=== PATIENT | male | born 1975 | race Caucasian/White ===

== ENCOUNTER 2017-04-12 16:00 | Emergency (ER) | payer SELFPAY ==
[~2017-04-12] VITALS: Ht 180.3 cm; Wt 81.0 kg
[2017-04-12] MEDS ORDERED: SODIUM CHLORIDE 0.9% 1,000 ML IV ONE (16:23)
[2017-04-12 16:54] LABS: CHLORIDE 104 mEq/L (98-107)
[2017-04-12 16:57] LABS: CARBON DIOXIDE 26 mEq/L (21-32)
[2017-04-12 16:58] LABS: BASOPHILS % 0.3 % (0.0-2.0); EOSINOPHILS % 0.2 % (0.0-5.0); HEMATOCRIT. 42.9 % (42.0-52.0); HEMOGLOBIN. 15.2 g/dL (14.0-18.0); LYMPHOCYTES % 18.3 % (20.0-50.0); MEAN CORPUSCULAR VOLUME 87.7 fL (80.0-94.0); MEAN PLATELET VOLUME 9.9 fl (7.4-10.4); MONOCYTES % 6.4 % (2.0-8.0); NEUTROPHILS % 74.8 % (40.0-76.0); PLATELET 193 x1000/uL (130-400); RED CELL DISTRIBUTION WIDTH 12.9 % (11.6-14.6)
[2017-04-12 17:05] LABS: TROPONIN I < 0.02 ng/mL (0.00-0.04)
[2017-04-12 18:17] VITALS: BP 157/104
== END 2017-04-12 19:11 | disposition home or self-care (01) ==
LOC: ER 16:10
DX: E86.0 Dehydration (principal); D32.9 Benign neoplasm of meninges, unspecified; F17.200 Nicotine dependence, unspecified, uncomplicated; I10 Essential (primary) hypertension; Z98.890 Other specified postprocedural states
CPT/HCPCS: 36415; 70450; 80053; 84484; 85025; 93005; 96360; 99285; J7030; Z7610